=== PATIENT | female | born 2000 | race Caucasian/White ===

== ENCOUNTER 2023-08-09 14:29 | Emergency (ER) | payer OTHER, SELFPAY ==
[2023-08-09 14:30] VITALS: BP 137/87; PULSE 80; RESP 18; TEMP 36.8; O2SAT 98; BMI 26.3
--- NOTE | 2023-08-09 14:54 | ED.VIS.GI ---
HPI <MARC Uribe - Last Filed: 08/09/23 17:28> HPI - GI History of Present Illness Chief Complaint: Abd Pain Narrative Narrative: Patient presenting today with nausea and epigastric abdominal pain. She reports that the pain started yesterday and was mainly in the right upper quadrant but now seems to be localized to the epigastric area. She reports that her symptoms are worse after she eats or whenever she is up walking around. She denies any vomiting, fever, chills, urinary symptoms, diarrhea. She denies any prior abdominal surgeries. She denies a PMH of any chronic health conditions. PFSH <MACR Uribe - Last Filed: 08/09/23 17:28> PFSH Home Medications pantoprazole 40 mg tablet,delayed release (Protonix) 40 mg PO DAILY #14 tabs 08/09/23 [Rx Last Taken Unknown] Allergy/AdvReac Type Severity Reaction Status Date / Time No Known Allergies Allergy Verified 08/09/23 14:29 Social History Smoking Status: Never smoker ROS <MARC Uribe - Last Filed: 08/09/23 17:28> ROS ED Constitutional Constitutional ED: Denies chills or fever(s) Cardiovascular Cardiovascular: Denies chest pain Respiratory/Chest Respiratory/Chest: Denies cough or dyspnea Gastrointestinal Gastrointestinal: Reports abdominal pain and nausea; Denies constipation, diarrhea or vomiting Genitourinary Genitourinary ED: Denies dysuria, hematuria or urinary urgency Musculoskeletal Musculoskeletal: Denies arthralgias or myalgias Integumentary Denies rash Neurologic Neurologic: Denies weakness EXAM <MARC Uribe - Last Filed: 08/09/23 17:28> Physical Exam Const Vital Signs: 08/09/23 14:30 08/09/23 16:50 08/09/23 17:25 Temperature 98.3 F Temperature Source Temporal Pulse Rate 80 Respiratory Rate 18 12 16 Blood Pressure 137/87 H Blood Pressure Mean 103 Pulse Ox 98 Oxygen Delivery Method Room Air Positive well nourished, well developed and no apparent distress General Appearance ED: well developed HEENT Reports normocephalic and head/scalp atraumatic Mouth ED: Yes moist mucous membranes normal Eyes PERRL and EOMs intact bilaterally Neck full ROM and supple Chest Wall inspection of chest normal Resp normal respiratory effort and clear to auscultation bilaterally Cardio regular rate and regular rhythm GI soft to palpation, non-distended and no masses GI Narrative: Epigastric tenderness to palpation, no Shoemaker sign, negative McBurney's point tenderness, no rigidity, guarding, or peritoneal signs. Back/Spine normal ROM and normal to inspection Extremity normal to inspection and full ROM Neuro oriented x3, CN's II-XII intact bilaterally, moves all extremities, no focal motor deficits and no sensory deficits noted Sensorium / Orientation: awake and alert Psych mental status grossly normal and thought process normal Skin no rashes or lesions noted and no wounds <Dr. Eagle Raymond DO - Last Filed: 08/10/23 17:48> Physical Exam Const Vital Signs: 08/09/23 14:30 08/09/23 16:50 08/09/23 17:25 Temperature 98.3 F Temperature Source Temporal Pulse Rate 80 Respiratory Rate 18 12 16 Blood Pressure 137/87 H Blood Pressure Mean 103 Pulse Ox 98 Oxygen Delivery Method Room Air MDM <MARC Uribe - Last Filed: 08/09/23 17:28> [facility] Narrative Medical decision making narrative: Patient presenting today due to epigastric abdominal pain, this started yesterday. She is well-appearing and in no acute distress, vitals are unremarkable. She is afebrile. Patient does not have an acute abdomen on exam, her belly is soft and nontender aside from mild epigastric tenderness. Negative Shoemaker sign. At this time I do not feel that any imaging of the abdomen is indicated. Labs will be obtained to rule out leukocytosis, anemia, electrolyte abnormality, SKYLER, UTI, and hepatobiliary etiology. Her labs overall are unremarkable aside from urinary ketones. She was given Zofran, GI cocktail, and Protonix. On reexamination she reports minimal relief of her symptoms. However, her abdomen remains soft and nontender. She is able to tolerate p.o. fluids. She will be given a prescription for Protonix and is to follow-up with her PCP. She has been given return instructions and will be discharged home in stable condition. I suspect that this is more of a gastritis. She is comfortable with plan. Lab Data Attestation: I reviewed the patient's lab results. Lab results narrative: Potassium 3.4, urinary ketones 150 Labs: Laboratory Results - last 24 hr 08/09/23 08/09/23 14:55 16:48 WBC 4.7 RBC 3.92 L Hgb 12.1 Hct 35.2 L MCV 89.8 MCH 30.9 MCHC 34.4 RDW Std Deviation 39.1 RDW Coeff of Lewis 12.0 Plt Count 205 MPV 10.6 Immature Gran % (Auto) 0.200 Neut % (Auto) 52.1 Lymph % (Auto) 34.2 [place] % (Auto) 10.7 H Eos % (Auto) 1.9 Baso % (Auto) 0.9 Absolute Neuts (auto) 2.4 Absolute Lymphs (auto) 1.60 Nucleated RBC % 0 Sodium 137 Potassium 3.4 L Chloride 105 Carbon Dioxide 28.0 Anion Gap 4 L BUN 8 Creatinine 0.61 Estim Creat Clear Calc 143.06 Est GFR (MDRD) Af Amer 160 Est GFR (MDRD) Non-Af 132 BUN/Creatinine Ratio 13.1 Glucose 87 Calcium 9.0 Total Bilirubin 0.80 AST 12 L ALT 30 Alkaline Phosphatase 58 Total Protein 7.1 Albumin 4.0 Globulin 3.1 Albumin/Globulin Ratio 1.3 Lipase 16 Serum , Qual NEGATIVE Urine Color Yellow Urine Clarity Sl. Cloudy Urine pH 6.0 Ur Specific [place] 1.020 Urine Protein Negative Urine Glucose (UA) Normal Urine Ketones 150 A* Urine Occult Blood 10 H Urine Nitrite Negative Urine Bilirubin Negative Urine Urobilinogen Normal Ur Leukocyte Esterase Negative Urine RBC 0-5 SEEN Urine WBC 0 SEEN Ur Squamous Epith Cells 0-5 SEEN Urine Bacteria 1+ Urine Mucus 0 SEEN <Dr. Eagle Raymond, DO - Last Filed: 08/10/23 17:48> [facility] Lab Data Labs: Laboratory Results - last 24 hr 08/09/23 08/09/23 14:55 16:48 WBC 4.7 RBC 3.92 L Hgb 12.1 Hct 35.2 L MCV 89.8 MCH 30.9 MCHC 34.4 RDW Std Deviation 39.1 RDW Coeff of [place] 12.0 Plt Count 205 MPV 10.6 Immature Gran % (Auto) 0.200 Neut % (Auto) 52.1 Lymph % (Auto) 34.2 [place] % (Auto) 10.7 H Eos % (Auto) 1.9 Baso % (Auto) 0.9 Absolute Neuts (auto) 2.4 Absolute Lymphs (auto) 1.60 Nucleated RBC % 0 Sodium 137 Potassium 3.4 L Chloride 105 Carbon Dioxide 28.0 Anion Gap 4 L BUN 8 Creatinine 0.61 Estim Creat Clear Calc 143.06 Est GFR (MDRD) Af Amer 160 Est GFR (MDRD) Non-Af 132 BUN/Creatinine Ratio 13.1 Glucose 87 Calcium 9.0 Total Bilirubin 0.80 AST 12 L ALT 30 Alkaline Phosphatase 58 Total Protein 7.1 Albumin 4.0 Globulin 3.1 Albumin/Globulin Ratio 1.3 Lipase 16 Serum , Qual NEGATIVE Urine Color Yellow Urine Clarity Sl. Cloudy Urine pH 6.0 Ur Specific [place] 1.020 Urine Protein Negative Urine Glucose (UA) Normal Urine Ketones 150 A* Urine Occult Blood 10 H Urine Nitrite Negative Urine Bilirubin Negative Urine Urobilinogen Normal Ur Leukocyte Esterase Negative Urine RBC 0-5 SEEN Urine WBC 0 SEEN Ur Squamous Epith Cells 0-5 SEEN Urine Bacteria 1+ Urine Mucus 0 SEEN Treatment and Re-Evaluation :: ED attending note: I evaluated the patient in conjunction with the ALISTAIR. I agree with his/her statements and above findings. I have personally performed a face to face assessment of the patient and have reviewed the ALISTAIR Note. I performed a substantive portion of the visit including all aspects of the following. I personally saw the patient performed chart review, physical exam, reviewed labs, imaging (if obtained), and formulated a treatment and management plan. Brief history: 22 year old female here with epigastric abdominal pain. Exam: Nursing triage notes reviewed, Vital signs reviewed Constitutional: please see mdm HENT: MMM Eyes: Pupils equal round and reactive to light, Extraocular muscles intact Neck: No stridor, no JVD, full neck ROM Lungs: Clear to auscultation, No wheezing or rales. No increased work of breathing, no conversational dyspnea, no accessory muscle use, no nasal flaring. No respiratory distress noted Heart: Regular rate and rhythm, No murmurs, No rubs and No gallops, 2+ distal pulses (radial, femoral, posterior tibial) in all extremities Abdomen: Soft, there is mild epigastric tenderness but no Shoemaker sign, no upper quadrant tenderness, no rigidity, rebound or guarding, no obvious peritoneal signs, no palpable pulsatile abdominal masses, no auscultated abdominal bruit : No CVAT Extremities: No edema Neuro: No focal neurological deficits, cranial nerves II through XII intact, 5/5 strength in all extremities. Intact sensation to light touch in all extremities, 2+ reflexes bilateral patella dens. Normal gait. No ataxia. Skin: No rash or lesions noted MDM/plan: Chief Complaint: Epigastric abdominal pain External records reviewed: No recent advanced imaging of the abdomen and pelvis Factors affecting care: None Social determinants of health: None History obtained from others: The patient's sister Consults: None at this time MDM narrative: Patient was hemodynamically stable, afebrile, nontoxic-appearing. I considered the following differential diagnosis: Gastritis, esophagitis, acute cholecystitis, pancreatitis, peptic ulcer disease, gastric perforation I considered gastric perforation however I did not think the patient required advanced imaging of the abdomen at this time for gastric perforation secondary to benign nature of the patient's abdominal exam, normal vital signs, no peritoneal signs, no WBC count elevation or signs of end organ hypoperfusion on BMP. There is no indication for advanced imaging of the abdomen or pelvis at this time. We will make this determination based on labs, vital signs, repeat abdominal exam and shared decision making. Shared decision making: I will have a discussion with the patient and or visitors regarding risk/benefits of further testing or admission. They will be made aware of of the risk/benefits inherent in this decision they will be given the opportunity to voice understanding. Discharge Plan Triage Chief Complaint: Abd Pain ED Midlevel Provider: Christina Bernabe ED Provider: Eagle Raymond Dx/Rx/DC Orders Clinical Impression: Epigastric abdominal pain Instructions: ED Epigastric Pain Uncertain Cause Prescriptions: New pantoprazole [Protonix] 40 mg tablet,delayed release (DR/EC) 40 mg PO DAILY Qty: 14 0RF Primary Care Provider: Alejo Zaidi Referrals: Alejo Zaidi DO [Primary Care Provider] - 3-5 Days Activity Restrictions/Additional Instructions: Please return for any worsening of your symptoms. Follow-up with your PCP. Disposition Disposition: Home, Self Care Discharge Date/Time: 08/09/23 17:26
[2023-08-09 15:08] LABS: Absolute Neutrophil Count 2.4 X10^3/uL (2.0-7.7); Basophil# 0.04 X10^3/uL; Basophil% 0.9 % (0-1); Eosinophil# 0.09 X10^3/uL; Eosinophils% 1.9 % (0-5); Hematocrit 35.2 % (37-47); Hemoglobin 12.1 g/dL (12.0-15.0); Lymphocyte % 34.2 % (19-41); Mean Corp Hgb Conc 34.4 g/dL (32-36); Mean Corpuscular Hgb 30.9 pg (27.0-32.0); Mean Corpuscular Volume 89.8 fL (81-99); Mean Platelet Vol. 10.6 fl (6.2-12.0); Monocyte% 10.7 % (0-10); NRBC Flagged by Analyzer 0 % (0-5); Neutrophil # 2.44 X10^3/uL (2.7-7.7); Neutrophil % 52.1 % (47-70); Platelet Count 205 K/mm3 (150-450); RBC Distribution Width SD 39.1 fl (35.1-43.9); Red Blood Count 3.92 M/mm3 (4.2-5.4); White Blood Count 4.7 K/mm3 (4.4-11.0)
[2023-08-09 15:16] LABS: Internal QC Validated? YES +Cl - CLEAR BKGD; Pregnancy, Serum, hCG Quali. NEGATIVE Negative
[2023-08-09 15:17] LABS: Record Kit Lot#, Serum Preg. HCG0000667200
[2023-08-09] MEDS: Ondansetron 4 MG/2 ML Vial IV (15:19)
[2023-08-09] MEDS: Mag Hydrox/Al Hydrox/Simeth 30 ML UDC PO (15:19)
[2023-08-09 15:26] LABS: ALB/GLOB Ratio 1.3 RATIO (0.9-2.4); AST(SGOT) 12 U/L (15-37); Alanine Aminotransfer ALT/SGPT 30 U/L (13-56); Alkaline Phosphatase 58 U/L (45-117); Anion Gap 4 (5-15); BUN 8 mg/dL (7-18); BUN/Creat Ratio 13.1 RATIO (10-20); Chloride 105 mmol/L (98-107); Creatinine, Serum 0.61 mg/dL (0.55-1.02); EST Glomerular Filtration Rate 132 mL/min (>60); Est Glom Filt Rate - Afr Amer 160 mL/min (>60); Estimated Creatinine Clearance 143.06 ml/min; Globulin 3.1 g/dL (2.2-4.2); Glucose 87 mg/dL (74-106); Lipase 16 U/L (13-75); Potassium 3.4 mmol/L (3.5-5.1); Protein, Total 7.1 g/dL (6.4-8.2); Sodium Level 137 mmol/L (136-145)
[2023-08-09 16:50] VITALS: RESP 12
[2023-08-09 16:53] LABS: Mucous, Urine 0 SEEN /hpf (<or=2+); White Blood Cells 0 SEEN /hpf (0-5)
[2023-08-09 16:57] LABS: Color, Urine Yellow (Yellow); Glucose, Dipstick Normal (Normal); Leukocyte Esterase-Dipstick Negative /ul (Negative); Nitrite-Dipstick Negative (Negative); Occult Blood-Urine 10 /ul (Negative); Protein-Dipstick Negative (Negative); Urine Bilirubin Dipstick Negative (Negative); Urine Clarity Sl. Cloudy (Clear); Urine Urobilinogen Normal (Normal)
[2023-08-09 17:04] LABS: Ketone-Dipstick 150 mg/dl (Negative)
[2023-08-09 17:06] LABS: Bacteria 1+ /hpf (None Seen); Red Blood Cells-Urine 0-5 SEEN /hpf (0-5); Squamous Epithelial Cells - UA 0-5 SEEN /hpf (5-10)
[2023-08-09 17:25] VITALS: RESP 16
[2023-08-09] MEDS: Pantoprazole Sodium 40 MG Tablet PO (17:25)
== END 2023-08-09 17:26 | disposition home or self-care (01) ==
PROVIDERS: Physician Assistant; Emergency Provider Emergency Medicine; PCP Family Medicine; Visit Provider Emergency Medicine
DX: R10.13 Epigastric pain (principal); R11.0 Nausea
CPT/HCPCS: 80053; 81001; 83690; 84703; 85025; 96374; 99284; J2405

== ENCOUNTER 2023-08-10 20:29 | Emergency (ER) | payer SELFPAY ==
[2023-08-10 20:30] VITALS: BP 128/71; PULSE 79; RESP 18; TEMP 36.6; O2SAT 98; BMI 26.2
--- NOTE | 2023-08-10 22:29 | EKG12_ITS ---
Test Reason : CP Blood Pressure : / mmHG Vent. Rate : 076 BPM Atrial Rate : 076 BPM P-R Int : 176 ms QRS Dur : 078 ms QT Int : 366 ms P-R-T Axes : 077 076 -28 degrees QTc Int : 411 ms Normal sinus rhythm T wave abnormality, consider inferior ischemia Abnormal ECG Confirmed by URIEL ARCHIBALD, DARCI ([id number]), content editor LULI SANCHEZ ([id number]) on 08/15/2023 11:32:59 AM Referred By: MARIAJOSE Confirmed By:KEDAR TREVINO MD
--- NOTE | 2023-08-10 22:30 | EDS_ITS ---
HPI History of Present Illness Chief Complaint: Chest Pain Narrative Narrative: 22-year-old female who denies significant past medical history presents with her significant other and mother because of chest pain that she began having at 10 AM, approximately 12 hours ago, after she took pain Tasoprol. She states she became lightheaded as well, and had a headache earlier. Of note, she was seen in the emergency department yesterday, and diagnosed with gastritis. She was having epigastric abdominal pain with the same symptoms of nausea but no vomiting. She has not vomited. She denies any fevers but states she had chills today as well. She now has pain between her breasts that is midsternal. It is radiating upward from her pain yesterday. She is describing GERD symptoms. However, she states that they gave her medication and something to drink yesterday which did not alleviate her epigastric pain. [facility] Medical History (Updated 08/10/23 @ 22:46 by Joni Hoover MD) No acute medical problems Home Medications pantoprazole 40 mg tablet,delayed release (Protonix) 40 mg PO DAILY #14 tabs 08/09/23 [Rx Last Taken Unknown] Allergy/AdvReac Type Severity Reaction Status Date / Time No Known Allergies Allergy Verified 08/10/23 20:32 Social History Smoking Status: Never smoker ROS ROS ED ROS Narrative Constitutional: No fever, no chills. HEENT: No sore throat. No neck pain. No loss of vision. No rhinorrhea. Cardiovascular: Positive chest pain. No palpitations. No pedal edema. Respiratory: No cough, no shortness of breath. Abdominal: No abdominal pain. No nausea. No vomiting. Genitourinary: No dysuria. No hematuria. Musculoskeletal: No myalgias. No arthralgias. Neurologic: No headaches. No dizziness. No lightheadedness. Skin: No rash. No change in color. Psychiatric: No depression. No anxiety. EXAM Physical Exam Narrative Exam Narrative: Afebrile. Vital signs noted. HEENT: Normocephalic. Atraumatic. PERRL, EOMI. Neck soft and supple. No point tenderness or step off. Cardiovascular: Regular rate and rhythm. No murmurs, rubs, or gallops appreciated. Respiratory: No tachypnea. Lungs clear to auscultation bilaterally. Gastrointestinal: Abdomen soft, nontender, with normoactive bowel sounds. No rebound or guarding. Neurological: Awake. Alert. Nonfocal, nonlateralizing. Skin: No rash. Normal color. No pallor. Musculoskeletal: No pedal edema. Full range of motion extremities. Const Vital Signs: 08/10/23 20:30 Temperature 97.9 F Temperature Source Temporal Pulse Rate 79 Respiratory Rate 18 Blood Pressure 128/71 H Blood Pressure Mean 90 Pulse Ox 98 Oxygen Delivery Method Room Air Heart Score History: Slightly/Non-Suspicious ECG: Normal Age: </= 45 years Risk Factors: No Risk Factors Score: 0 MDM MDM MDM Narrative Medical decision making narrative: I reviewed the patient's prior records from yesterday. She had a work-up including lipase which was negative. Imaging was not obtained of the abdomen, but I do not feel that any is indicated currently. As she is describing more GERD symptoms, I do feel that this is the cause of her chest pain. She may have a hiatal hernia as well. As she states the GI cocktail was ineffective, we will give her oral Pepcid instead. I do think that she may be having side effects from the pantazaprole that she was prescribed. EKG and chest x-ray in 1 view will be obtained. I have low suspicion for coronary artery disease. She has normal vital signs. I have low suspicion for pulmonary embolism as she is PERC negative. I do not feel she really requires repeat laboratory work. EKG was obtained and interpreted by myself independently as normal sinus rhythm at 76 bpm without ectopy or acute ST changes. No STEMI. Chest x-ray 1 view interpreted by myself independently shows no evidence of pneumothorax or pneumonia. I reviewed the radiology report which confirms my independent interpretation. At this point in time, I feel she can be discharged safely home with follow-up to her primary care provider. Disposition is discharged home in stable condition. History & Record Review Discussion w/independent historian: Patient and Family Additional record(s) reviewed:: Prior ED visit and Prior labs Radiography Diagnostic Testing: Clinical Impression(s) from Imaging Studies Chest X-Ray 08/10/23 22:38 IMPRESSION: No evidence of cardiopulmonary disease. Electronically Signed: Royer Alcala DO at 23:02 EDT , Discharge Plan Triage Chief Complaint: Chest Pain ED Provider: Joni Hoover Dx/Rx/DC Orders Clinical Impression: Chest pain due to GERD, Chest pain Instructions: ED Chest Pain, Uncertain Cause, ED GERD (Adult) Prescriptions: No Action pantoprazole [Protonix] 40 mg tablet,delayed release (DR/EC) 40 mg PO DAILY Qty: 14 0RF Primary Care Provider: Alejo Zaidi Referrals: Alejo Zaidi, [Primary Care Provider] - 3-5 Days if not improving Disposition Disposition: Home, Self Care
--- NOTE | 2023-08-10 22:38 | RAD_ITS ---
INDICATION: chest pain EXAMINATION/TECHNIQUE: X-RAY - XR Chest 1 View COMPARISON: None. FINDINGS: LINES/DEVICES: None. LUNGS: No consolidation or evidence of an effusion. No evidence of edema or a pneumothorax. MEDIASTINUM AND CARDIOVASCULAR STRUCTURES: Cardiac silhouette is normal in size and contour. Mediastinum is unremarkable. BONES AND SOFT TISSUES: No acute abnormality. RAD/Chest 1 View (Portable) IMPRESSION: No evidence of cardiopulmonary disease. Electronically Signed: Royer Alcala DO at 23:02 EDT ,
[2023-08-10] MEDS: Famotidine 20 MG Tablet PO (22:49)
== END 2023-08-10 23:19 | disposition home or self-care (01) ==
PROVIDERS: Emergency Provider Emergency Medicine; PCP Family Medicine; Visit Provider Emergency Medicine
DX: K21.9 Gastro-esophageal reflux disease without esophagitis (principal)
CPT/HCPCS: 71045; 93005; 99283